=== PATIENT | female | born 1965 | race African-American/Black ===

== ENCOUNTER 2019-06-06 11:13 | Outpatient (CLI) | payer OTHER ==
--- NOTE | 2019-06-06 12:03 | ULT ---
Exam: Pelvic ultrasound HISTORY: Postmenopausal bleeding. COMPARISON: None TECHNIQUE: Multiple grayscale and color Doppler images were obtained in a transabdominal and transvag inal pelvic ultrasound. FINDINGS: CERVIX: Within normal limits where visualized. UTERUS: Slight heterogeneity without focal mass. Uterus measures 8.5 cm x 4.7 cm x 3.6 cm. ENDOMETRIAL STRIPE: Not well delineated, but where seen measures 4.4 mm which is at the upper limits of normal in size for a postmenopausal female patient. No fluid or fluid collection is seen in the endometrial canal. No free fluid is present. RIGHT OVARY: Not visualized. No right adnexal mass is seen on this exam. LEFT OVARY:Not visualized. No left adnexal mass is seen on this exam. IMPRESSION: 1. Nonvisualization of the bilateral ovaries. 2. Nonspecific slight heterogeneity of the uterus. The endometrial stripe is not well delineated but where seen measures 4.4 mm in AP dimensions which is at the upper limits of normal. No fluid or fluid collection is seen in the endometrial canal.
== END 2019-06-06 11:14 | disposition home or self-care (01) ==
LOC: SCSULT 11:13
PROVIDERS: ATTEND Nurse Practitioner
DX: N93.9 Abnormal uterine and vaginal bleeding, unspecified (principal)
CPT/HCPCS: 76856